=== PATIENT | female | born 2000 | race Two or more races ===

== ENCOUNTER 2024-07-11 14:35 | Emergency (ER) | payer MEDICAID, SELFPAY ==
[2024-07-11 14:37] VITALS: BMI 30.7
[2024-07-11 15:33] VITALS: BP 132/71; PULSE 76; RESP 18; TEMP 36.9; O2SAT 99
--- NOTE | 2024-07-11 15:41 | EDNOTE_ITS ---
<Statement entered by Rukhsana Alvarado MD - 07/12/24 16:19> As co-signing physician, I was present and available for consult prn. I concur with the plan and care as documented by the midlevel provider. ED Skin Abcess FB-RME/HPI General Chief complaint: Extremity Problem,Nontraumatic Stated complaint: TUMOR TO LEFT ARM Time Seen by Provider: 07/11/24 14:39 Arrival date/time: 07/11/24 14:35 23-year-old female with history of multiple tumors with excision presents with complaints of skin abnormality to her left upper arm ongoing for last couple of months Limitations: no limitations Related Data Allergies Allergy/AdvReac Type Severity Reaction Status Date / Time No Known Allergies Allergy Verified 07/11/24 14:36 Review of Systems Review of Systems Systems Reviewed: All systems reviewed, normal except as documented Constitutional Constitutional: Reports system reviewed and no additional complaints, except as documented, Denies fever(s) and Denies headache(s) Eyes Eyes: Reports system reviewed and no additional complaints, except as documented and Denies blurry vision ENT Ears, Nose, Mouth, and Throat: Reports system reviewed and no additional complai nts, except as documented, Denies headache(s), Denies nasal congestion and Denies nasal discharge Cardiovascular Cardiovascular: Reports system reviewed and no additional complaints, except as documented, Denies chest pain and Denies dyspnea Respiratory Respiratory: Reports system reviewed and no additional complaints, except as documented, Denies chest congestion, Denies cough and Denies dyspnea Gastrointestinal Gastrointestinal: Reports system reviewed and no additional complaints, except as documented and Denies abdominal pain Integumentary/Breasts Skin/Breast: Reports system reviewed and no additional complaints, except as documented, Denies rash and Reports other (Tumor versus left upper arm) Neurologic Neurologic: Reports system reviewed and no additional complaints, except as documented, Reports as per HPI and Denies headache(s) Past Medical History Social History SMOKING STATUS: Never smoker ED Exam General Limitations: Present no limitations General appearance: Present alert and in no apparent distress Head Head exam: Present atraumatic Eye Eye exam: Present normal appearance, PERRL and EOMI ENT ENT exam: Present normal exam, normal oropharynx and mucous membranes moist Neck Neck exam: Present normal inspection, full ROM and trachea midline Chest Chest inspection: Present normal inspection and symmetric chest wall rise Respiratory Respiratory exam: Present normal lung sounds bilaterally Cardiovascular Cardiovascular exam: Present regular rate, normal rhythm and normal heart sounds Abdominal Exam Abdominal exam: Present soft and normal bowel sounds Extremities Exam Extremities exam: Present full ROM and tenderness (Tumor versus cyst left upper) Back Exam Back exam: Present normal inspection and full ROM Neurological Exam Neurological exam: Present alert, oriented X3 and CN II-XII intact Psychiatric Psychiatric exam: Present normal affect and normal mood Skin Skin exam: Present warm, dry and other (Tumor versus cyst left upper) Course Quality Measures none Vital Signs Vital signs: Vital Signs Temperature 98.5 F 07/11/24 15:33 Pulse Rate 76 07/11/24 15:33 Respiratory Rate 18 07/11/24 15:33 Blood Pressure 132/71 H 07/11/24 15:33 Pulse Oximetry (%) 99 07/11/24 15:33 Oxygen Delivery Method Room Air 07/11/24 15:33 O2 saturation 99% room air within normal limits Skin / Abscess / Foreign Body MDM Narrative MDM Narrative:: 23-year-old female with history of multiple tumors with excision presents with complaints of skin abnormality to her left upper arm ongoing for last couple of months On exam I suspect patient has a benign tumor versus cyst which required excision and biopsy Explained to the patient she needs to follow-up with her primary care doctor or get a referral for specialist Patient discharged home in no distress to follow-up with primary care doctor in the next 24 to 48 hours and for any worsening symptoms to return to the ER immediately Patient data External records reviewed:: [facility] previous records Clinical information provided by:: patient Social determinants that could affect healthcare access:: none Patient has the following chronic illnesses:: See history How is presenting disease/condition affected by chronic disease/condition?: uneffected by Evaluation data The following diagnostics were reviewed and interpreted by me:: other (specify) (N/A) Lab and/or radiology exams considered but not ordered:: Consider not ordered Interpretation Summary: N/A Medications / Prescriptions Medications or Prescriptions considered but not ordered:: Given no meds Medication administrations:: No meds Consultations Consultation(s) initiated? (list below): No Diagnosis Skin/Abscess Differential Diagnosis: abscess of skin or subcutaneous tissue, cellulitis and other (Tumor, cyst) Most likely diagnosis given after review of the tests above:: Tumor versus cyst Admission Indicated Admission indicated?: not indicated Admission Request Was there a request for admission?: No Disposition Plan Disposition Plan: Discharge Discharge Attestation Discharge Attestation: The patient and all family members were given an opportunity to ask questions and understood the discharge instructions. Discharge instructions specifically effects, indications for sooner follow up or return to the emergency department, and the expected course of current diagnosis. Patient condition: Stable Discharge Plan Plan Patient Disposition: HOME (Self Care) Disposition Comment: Stable Problem List Clinical Impression: Abnormal skin growth Patient/Caregiver Discharge Instructions Education Materials: ED Tumor, Uncertain Cause Additional Instructions: Please follow-up with PCP and or get a referral to specialist for excision and biopsy Print Language: Urdu Stand Alone Forms: Ching Award Info., Patient Portal Info Letter PA/PRICING/SIGNAGE TEAM MEMBER Supervising Physician PA/PRICING/SIGNAGE TEAM MEMBER Supervising Physician: Dr. ALVARADO
== END 2024-07-11 15:55 | disposition home or self-care (01) ==
LOC: SERX 15:51
PROVIDERS: Emergency Provider Emergency Medicine
DX: D49.2 Neoplasm of unspecified behavior of bone, soft tissue, and skin (principal)
CPT/HCPCS: 99281